=== PATIENT | male | born 1945 | race Caucasian/White ===

== ENCOUNTER 2023-10-21 13:00 | Outpatient (RCR) | payer OTHER, SELFPAY | END 2023-10-21 23:59 | disposition home or self-care (01) | LOC: RPT 13:00 | PROVIDERS: ATTENDING PHYSICIAN Family Medicine | DX: R26.9 Unspecified abnormalities of gait and mobility (principal); R53.83 Other fatigue; Z73.6 Limitation of activities due to disability | CPT/HCPCS: 97110; 97162; 97530; 97535 ==

== ENCOUNTER 2023-11-20 13:51 | Outpatient (RCR) | payer OTHER, SELFPAY | END 2023-11-20 23:59 | disposition home or self-care (01) | LOC: RPT 13:51 | PROVIDERS: ATTENDING PHYSICIAN Family Medicine | DX: R26.9 Unspecified abnormalities of gait and mobility (principal); R53.81 Other malaise; Z73.6 Limitation of activities due to disability | CPT/HCPCS: 97110; 97112; 97530; 97535 ==

== ENCOUNTER 2023-12-17 13:05 | Outpatient (RCR) | payer OTHER, SELFPAY | END 2023-12-17 15:44 | disposition home or self-care (01) | LOC: RPT 13:05 | PROVIDERS: ATTENDING PHYSICIAN Family Medicine | DX: R26.89 Other abnormalities of gait and mobility (principal); R53.81 Other malaise; Z73.6 Limitation of activities due to disability; Z96.653 Presence of artificial knee joint, bilateral | CPT/HCPCS: 97110; 97530; 97535 ==

== ENCOUNTER → 2024-05-06 10:58 | Outpatient (REF) | payer OTHER, SELFPAY | LOC: HWRCS 10:58 | PROVIDERS: ATTENDING PHYSICIAN Internal Medicine Cardiovascular Disease; FAMILY PHYSICIAN Family Medicine | DX: R55 Syncope and collapse (principal); I50.32 Chronic diastolic (congestive) heart failure; I10 Essential (primary) hypertension | CPT/HCPCS: 93306 ==

== ENCOUNTER → 2024-06-24 08:08 | Outpatient (REF) | payer OTHER, SELFPAY | LOC: RAD 08:08 | PROVIDERS: ATTENDING PHYSICIAN Family Medicine; REFERRING PHYSICIAN Internal Medicine Cardiovascular Disease | DX: R55 Syncope and collapse (principal) | CPT/HCPCS: 93880 ==

== ENCOUNTER 2024-11-18 01:22 | Emergency (ER) | payer OTHER, SELFPAY ==
[2024-11-18 01:27] VITALS: BP 148/110
[2024-11-18 01:38] VITALS: BMI 35.7
[2024-11-18 04:30] VITALS: BP 114/67
--- NOTE | 2024-11-18 07:11 | ED.GENMED ---
History of Present Illness
General
Chief Complaint: Bowel Problem
Source: patient
Time Seen by Provider: 11/18/24 03:26
Nursing documentation reviewed up to this point in time: agreed with
History of Present Illness
History of Present Illness:
Pleasant 79-year-old male presents to the emergency department with constipation. He has been having sporadic bowel movements for the last few weeks. Patient was seen by his primary care provider and started on MiraLAX. Patient has been
prescribed senna and Colace but has not been taking it. He states that the MiraLAX did not work. Patient is the primary caregiver for his who is infirm at home. He has not been eating regularly. He states that he has been eating 1 can of
soup per day.
Past History
Past History
ED Past Medical History: Arrthythmia, HTN, Hypercholesterolemia, NIDDM and Hypothyroidism
ED Past Surgical History: Cholecystectomy
Social History
Tobacco: Non-smoker
Alcohol: Occasional
Personal:
Living: with family
Review of Systems
Review of Systems
Allergies reviewed?: Yes
All Other Systems: ROS reviewed and negative except as documented in HPI and ROS
Constitutional: Reports no symptoms
EENT: Reports no symptoms
Respiratory: Reports no symptoms
Cardiac: Reports no symptoms
ABD/GI: Reports constipated; Denies diarrhea, bloody stools or black stools
: Reports no symptoms
Musculoskeletal: Reports no symptoms
Skin: Reports no symptoms
Neurological: Reports no symptoms
Endocrine: Reports no symptoms
Hematologic/Lymphatic: Reports no symptoms
Psychiatric: Reports no symptoms
Phy Exam
General Physical Exam
General Presentation: well appearing
General age: appears stated age
General Skin: warm
General Habitus: normal
General Mental: alert
Pulmonary Exam
Pulmonary Exam: lungs clear and no respiratory distress
Neurological Exam
Neurological Exam: alert and oriented x3
Musculoskeletal Exam
Musculoskeletal Exam: full ROM and neck pain
Psychiatric Exam
Psychiatric Exam: normal mood/affect
Course
Orders/Labs/Results
Orders:
Orders
11/18/24 03:56
CR Abdomen - 1 View Urgent
Comment:
Reason For Exam: abd pain
11/18/24 05:00
Enema- Treatment ONCE
Type: Milk of Molasses
11/18/24 06:53
Case Management Consult ONCE
Case Management Consult: Discharge Planning
Requested By:: PHYSICIAN
Comment: Patient's has been sick/bedbound for 3 weeks. Patient has been caring for her,
states cooking only soup and eating cookies for the past 3 weeks. Pt states he
does not have a good relationship with his son. Pt had to come to the ED tonight
via EMS. Need assessment to determine safety and food resources, etc., for patient
and his .
Tentative Discharge Date: 11/18/24
Vital Signs
Initial and Last Documented VS:
Initial Vital Signs
Temp Pulse Resp BP Pulse Ox
98.0 F 109 16 148/110 95
11/18/24 01:27 11/18/24 01:27 11/18/24 01:27 11/18/24 01:27 11/18/24 01:27
Last Documented Vital Signs
Temp Pulse Resp BP Pulse Ox
99.1 F 65 16 125/75 97
11/18/24 06:30 11/18/24 10:35 11/18/24 10:35 11/18/24 10:35 11/18/24 10:35
*Critical Care Note
Total Time (30-74mins, 75-104mins- exclusive of procedures): Not Applicable
Update Note
Update Note:
Patient had milk of molasses enema
Patient currently holding it in
ED Attending Note
-
Portions of this chart may have been created with voice recognition software.� Occasional wrong word or��sound alike� substitutions may have occurred due to the inherent limitations of voice recognition software.
Discharge Plan
Departure
Patient Disposition: Home (Routine Discharge)
Date of Disposition: 11/18/24
Time of Disposition: 09:44
Patient with high blood pressure during this ER visit?: No
Discharge Problem:
Constipation, Adult failure to thrive
Instructions: Constipation, Adult (DC)
Prescriptions:
No Action
metoprolol succinate 50 MG tablet extended release 24 hr
50 mg PO Q12H
digoxin [Digitek] 0.25 MG tablet
0.125 mg PO DAILY
citalopram 20 MG tablet
30 mg PO DAILY
tamsulosin 0.4 MG capsule
0.4 mg PO DAILY
metformin 1,000 MG tablet
1,000 mg PO DAILY
levothyroxine 150 MCG tablet
100 mcg PO DAILY AT 0700
simvastatin 20 MG tablet
40 mg PO QPM
furosemide 40 MG tablet
40 mg PO DAILY Qty: 0 0RF
Rx Instructions:
Hold if systolic blood pressure <130 while on Tylenol #3.
Eliquis 5 MG tablet
5 mg PO Q12H Qty: 0 0RF
Gemtesa 75 mg Tablet
75 mg PO DAILY
Referrals:
Truman Salinas MD [Family Provider] -
Activity Restrictions/Additional Instructions:
Please continue to take your MiraLAX, as previously directed. Restart your senna and Colace once her bowels start moving regularly
It was a pleasure meeting you and taking part in your care. We hope for your continued healing and wellness.
Please read discharge instructions in their entirety. However, they are for general education and may not describe your exact diagnosis at discharge. Information on your ER visit and medical conditions were discussed with you along with appropriate
follow up information...
If indicated, please take your medications as instructed and indicated on discharge paperwork.
Please schedule a follow up appointment as directed. Call to schedule an appointment
Please return to the emergency department with ANY change in, persisting, or worsening of symptoms. If any of your symptoms do not improve, or persist, or become more severe within 6-12 hours, please return to the emergency department for further
care.
Please return to the emergency department if you develop a headache, neck pain/stiffness, fever greater than 100.4F, chest pain, shortness of breath, persistent nausea, vomiting, slurred speech, difficulty walking, numbness/tingling, weakness, signs
of infection or any other symptoms that are worrisome to you.
If you have any questions or concerns please do not hesitate to call the Hospital at or E-mail me directly at [email or web address]
Interventions
Interventions:
*Risk Screen - Suicide Last Done: 11/18/24 01:27
*General Assessment Last Done: 11/18/24 04:50
*Neglect/Abuse Screening Last Done: 11/18/24 01:27
*ED- Fall Risk Assessment Last Done: 11/18/24 01:27
*ED COVID-19 Vaccine History Last Done: 11/18/24 01:27
*Nursing Disposition Last Done: 11/18/24 10:35
[facility] Assessment Last Done: 11/18/24 04:40
Discharge Date and Time
Discharge Date/Time: 11/18/24 10:41
Print Language: AZERI
[2024-11-18 07:46] VITALS: BP 123/83
--- NOTE | 2024-11-18 09:25 | CM ---
Addendum entered by Shante Pantoja RN 11/18/24 09:56:
CM spoke with Dolores at protective services with concerns for self neglect.
Original Note:
CM reviewed medical records. CM met with patient in room. Patient lives independently with . Patient stated that has been ill recently with Flu/Pneumonia. Patient stated that he is not a 'cook' and due to 's illness she is unable to
cook. Patient stated that he does not have a good relationship with his son, but his son will pick him up from the hospital.
CM asked patient if he would like to have [facility] assist. CM will call [facility] with a Protective Services call.
[2024-11-18 10:35] VITALS: BP 125/75
== END 2024-11-18 10:41 | disposition home or self-care (01) ==
LOC: EMR 01:22
PROVIDERS: EMERGENCY PHYSICIAN Student in an Organized Health Care Education/Training Program; FAMILY PHYSICIAN Family Medicine
DX: K59.00 Constipation, unspecified (principal); R62.7 Adult failure to thrive; I10 Essential (primary) hypertension; E78.00 Pure hypercholesterolemia, unspecified; E11.9 Type 2 diabetes mellitus without complications; E03.9 Hypothyroidism, unspecified; Z90.49 Acquired absence of other specified parts of digestive tract
CPT/HCPCS: 99283; 74018